=== PATIENT | male | born 1935 | race Hispanic/Latino ===

== ENCOUNTER → 2018-07-06 | Outpatient (CLI) | payer MEDICARE ==
[~2018-07-06] MED LIST: IOPAMIDOL 370 MG/ML 200 ML INFUS..BTL INJ ONE; SODIUM CHLORIDE 0.9% 100 ML 100 ML ONE
[2018-07-06 08:14] LABS: BLOOD UREA NITROGEN 16 mg/dL (7-26); BUN/CREATININE RATIO 15 (6-25); EST GLOMERULAR FILTRATION RATE > 60 ML/MIN (60-)
--- NOTE | 2018-07-06 09:51 | Diagnostic Imaging Report ---
CTA NECK HISTORY: Carotid stenosis COMPARISON: None. TECHNIQUE: CTA of the neck was performed with intravenous iodine based contrast. Coronal, sagittal, 3-D, and oblique maximum intensity projection reformations were created. One or more of the following dose reduction techniques were used: Automated exposure control, adjustment of the mA and/or kV according to patient size, and/or utilization of iterative reconstruction technique. 100 mL of Isovue-370 were administered. DISCUSSION: If present, any cervical carotid stenosis will be measured as a percentage relative to the seneca artery distal to the stenosis (NASCET). There are diffuse atherosclerotic calcifications at the aortic arch and proximal great vessels. Right Carotid: Moderate calcified plaque at the right carotid bulb causes less than 50% focal stenosis in the proximal right internal carotid artery. The right internal carotid artery has a slight retropharyngeal course. Right carotid siphon calcifications are present. 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 The occlusion extends distally into the intracranial segments. There is reconstitution of the ophthalmic left internal carotid artery. The left internal carotid artery terminus and visualized proximal left anterior middle cerebral arteries are grossly patent. Underlying left carotid siphon calcifications are present. Anterior and left posterior communicating arteries are present. Mildly prominent left ophthalmic artery may be related to collateral flow. Right vertebral artery: Mild calcification at the right vertebral artery ostium without significant stenosis. Otherwise, patent and without abnormality. The right vertebral artery is dominant. Left vertebral artery: At least moderate focal stenosis at the left vertebral artery ostium due to calcified plaque. The left vertebral artery is patent, but diminutive throughout. Additional findings: The visualized brain parenchyma is grossly unremarkable. Both ocular lenses are thinned. There is minimal scarring and emphysematous changes in the lung apices. Median sternotomy changes are partially visualized. There is a subcentimeter hypodense nodule in the left thyroid lobe. Mild scattered bilateral paranasal sinus mucosal thickening is nonspecific. There are mild to moderate degenerative changes throughout the spine. IMPRESSION: 1. 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 Anterior and left posterior communicating arteries are present. Mildly prominent left ophthalmic artery may be related to collateral flow. This occlusion may be chronic. 2. Moderate right carotid bulb calcified plaque without significant stenosis. 3. At least moderate focal stenosis at the left vertebral artery ostium due to calcified plaque. The left vertebral artery is patent, but diminutive throughout. 4. Mild right vertebral artery ostium calcification without significant stenosis. Signed by: Dr. Min Mason M.D. on 07/06/2018 9:48 AM
== END ==
LOC: CT 07:14
PROVIDERS: ATTEND Internal Medicine Interventional Cardiology
DX: I65.22 Occlusion and stenosis of left carotid artery (principal); Z13.6 Encounter for screening for cardiovascular disorders
CPT/HCPCS: 36415; 70498; 82565; 84520; Q9967

== ENCOUNTER → 2025-01-23 | Outpatient (REF) | payer OTHER ==
[~2025-01-23] MED LIST changes: +IOPAMIDOL 370 MG/ML 100 ML INFUS..BTL INJ ONE; -IOPAMIDOL 370 MG/ML 200 ML INFUS..BTL INJ ONE; -SODIUM CHLORIDE 0.9% 100 ML 100 ML ONE; +SODIUM CHLORIDE 0.9% 100 ML ONE
[2025-01-23 12:54] LABS: EST GLOMERULAR FILTRATION RATE 67.0 ML/MIN (>=60)
== END ==
LOC: CT 11:52
PROVIDERS: ATTEND Internal Medicine Interventional Cardiology
DX: I65.23 Occlusion and stenosis of bilateral carotid arteries (principal)
CPT/HCPCS: 36415; 70498; 82565; 84520; J7050; Q9967